=== PATIENT | female | born 1975 | race Caucasian/White ===

== ENCOUNTER → 2020-03-12 14:59 | Outpatient (CLI) | payer OTHER, SELFPAY ==
--- NOTE | 2020-03-12 | DI.US.S_ITS ---
LIMITED ULTRASOUND OF LEFT BREAST: 03/12/2020 CLINICAL: Palpable left breast lump. Comparison is made to exams dated: 03/12/2020 mammogram - [facility], 09/26/2019 mammogram, 09/02/2018 mammogram, 09/02/2018 ultrasound, 09/02/2017 mammogram - [facility], and 08/21/2016 mammogram - [facility]. Color flow and real-time ultrasound of the left breast axilla were performed. Wells scale images of the real-time examination were reviewed. No significant abnormalities were seen sonographically in the left breast. IMPRESSION: NEGATIVE There is no sonographic evidence of malignancy. There is no abnormality seen in the left breast to correspond with the area of clinical concern and palpable abnormality indicated by triangular marker in the middle-posterior depth in the outer aspect, however, recommend clinical follow up for persistent or worsening symptoms, or development of any clinically suspicious findings. Return to annual mammogram screening schedule is recommended. Findings and recommendations were conveyed to the patient during today's evaluation. This exam was interpreted at Station ID: [id number]. Electronically Signed By: Johann Mendoza M.D. aty/:03/12/2020 16:24:56 letter sent: Clinical Evaluation Ultrasound BI-RADS: 1 Negative
--- NOTE | 2020-03-12 | DI.MG.S_ITS ---
UNILATERAL LEFT DIGITAL DIAGNOSTIC MAMMOGRAM 3D/2D: 03/12/2020 CLINICAL: Left breast mass. Comparison is made to exams dated: 09/26/2019 mammogram, 09/02/2018 mammogram, 09/02/2017 mammogram - [facility], 08/21/2016 mammogram, and 08/17/2015 mammogram - [facility]. The tissue of left breast is heterogeneously dense. This may lower the sensitivity of mammography. No significant masses, calcifications, or other findings are seen in the breast. IMPRESSION: INCOMPLETE: NEEDS ADDITIONAL IMAGING EVALUATION There is no abnormality seen in the left breast to correspond with the area of clinical concern and palpable abnormality indicated by triangular marker in the middle-posterior depth of the outer aspect of the left breast, however, ultrasound is recommended and will immediately follow this exam. This exam was interpreted at Station ID: [id number]. NOTE: For mammograms, a report in lay terms will be sent to the patient. Approximately 15% of breast malignancies will not be visualized mammographically. In the management of a palpable breast mass, a negative mammogram must not discourage biopsy of a clinically suspicious lesion. Electronically Signed By: Johann Mendoza M.D. aty/:03/12/2020 16:25:59 ACR BI-RADS Category 0: Incomplete 3340F
== END ==
PROVIDERS: PCP Family Medicine; Referring Provider Family Medicine; Visit Provider Family Medicine
DX: N63.0 Unspecified lump in unspecified breast (principal)
CPT/HCPCS: 76642; 77065; G0279

== ENCOUNTER → 2021-08-20 12:22 | Outpatient (CLI) | payer OTHER, SELFPAY ==
--- NOTE | 2021-08-20 12:26 | DI.MG.S_ITS ---
BILATERAL DIGITAL SCREENING MAMMOGRAM 3D/2D WITH CAD: 08/20/2021 CLINICAL: Family history of breast cancer. Routine screening. Comparison is made to exams dated: 09/26/2019 mammogram, 09/02/2018 mammogram, and 09/02/2017 mammogram - [facility]. The tissue of both breasts is heterogeneously dense. This may lower the sensitivity of mammography. Current study was also evaluated with a Computer Aided Detection (CAD) system. No significant masses, calcifications, or other findings are seen in either breast. There has been no significant interval change. IMPRESSION: NEGATIVE There is no mammographic evidence of malignancy. A 1 year screening mammogram is recommended. This exam was interpreted at Station ID: [id number]. NOTE: For mammograms, a report in lay terms will be sent to the patient. Approximately 15% of breast malignancies will not be visualized mammographically. In the management of a palpable breast mass, a negative mammogram must not discourage biopsy of a clinically suspicious lesion. Electronically Signed By: Fab long/halle:08/20/2021 13:17:24 letter sent: Normal Exam ACR BI-RADS Category 1: Negative 3341F
== END ==
PROVIDERS: PCP Family Medicine; Referring Provider Family Medicine; Visit Provider Family Medicine
DX: Z12.31 Encounter for screening mammogram for malignant neoplasm of breast (principal); Z80.3 Family history of malignant neoplasm of breast
CPT/HCPCS: 77063; 77067; 87077; 87086; 87186

== ENCOUNTER 2022-07-14 21:35 | Emergency (ER) | payer OTHER, SELFPAY ==
--- NOTE | 2022-07-14 22:11 | ED_ITS ---
HPI - General Adult General Chief complaint: Wound/Laceration Stated complaint: lt. hand ring finger laceration Time Seen by Provider: 07/14/22 22:11 Source: patient Mode of arrival: Ambulatory History of Present Illness HPI narrative: Patient is a 47-year-old female who is here for evaluation of a cut to the ring finger on her left hand. She stated that she cut it with a knife at home. It was bleeding. She covered with a bandage and came to the emergency department. Related Data Allergies Allergy/AdvReac Type Severity Reaction Status Date / Time INGREDIENT: NDA - NO KNOWN Allergy Unknown Uncoded 07/29/17 12:00 DRUG ALLERGIES Review of Systems Musculoskeletal Musculoskeletal: Reports system reviewed and no additional complaints, except as documented Integumentary/Breasts Skin/Breast: Reports system reviewed and no additional complaints, except as documented Patient History Social History Smoking Status: Never smoker Exam Initial Vital Signs Initial Vital Signs: Vital Signs Temperature 98 F 07/14/22 22:12 Pulse Rate 68 07/14/22 22:12 Respiratory Rate 16 07/14/22 22:12 Pulse Oximetry 100 07/14/22 22:12 Oxygen Delivery Method Room Air 07/14/22 22:12 Skin Other: Very superficial laceration to the tip of the ring finger. No active bleeding. Neuro Sensory Exam: no sensory deficits noted Procedures Laceration Repair Laceration 1: Site: hand Side (If applicable): left Size (cm): 1 Description: linear Depth: simple, single layer Skin layer closed with: dermabond Course Vital Signs Vital signs: Vital Signs - 8 hr 07/14/22 22:12 Temperature 98 F Pulse Rate 68 Respiratory Rate 16 Pulse Oximetry 100 Oxygen Delivery Method Room Air Medical Decision Making [facility] Narrative Medical decision making narrative: Very superficial cut to the finger. It was closed with Dermabond. No other injuries from the event. No indication for antibiotics. Patient discharged home with care instructions. Discharge Plan Departure Patient Disposition: Home Clinical Impression: Finger laceration Instructions: DI for Laceration Repair-Skin Glue Activity Restrictions/Additional Instructions: You can wash your hands like normal. The skin glue should come off in approximately 7 days. Return to the emergency department for any new symptoms. Referrals: Esther Ramirez MD [Primary Care Provider] - Stand Alone Forms: Patient Portal/API
[2022-07-14 22:12] VITALS: PULSE 68; RESP 16; TEMP 36.6; O2SAT 100
== END 2022-07-14 22:18 | disposition home or self-care (01) ==
PROVIDERS: Emergency Provider Emergency Medicine; PCP Family Medicine
DX: S61.215A Laceration without foreign body of left ring finger without damage to nail, initial encounter (principal); W26.0XXA Contact with knife, initial encounter
CPT/HCPCS: 99281

== ENCOUNTER → 2022-09-17 16:14 | Outpatient (CLI) | payer OTHER, SELFPAY ==
--- NOTE | 2022-09-17 | DI.MG.S_ITS ---
BILATERAL DIGITAL SCREENING MAMMOGRAM 3D/2D WITH CAD: 09/17/2022 CLINICAL: Routine screening. Family history of breast cancer. Comparison is made to exams dated: 08/20/2021 mammogram - [facility], 09/26/2019 mammogram, 09/02/2018 mammogram, and 09/02/2017 mammogram - [facility]. Both breasts are heterogeneously dense, which may obscure small masses (category c / 51-75% glandular tissue). Current study was also evaluated with a Computer Aided Detection (CAD) system. No significant masses, calcifications, or other findings are seen in either breast. There has been no significant interval change. IMPRESSION: NEGATIVE There is no mammographic evidence of malignancy. A 1 year screening mammogram is recommended. Based on Tyrer-Cuzick model (a risk assessment model), the patient's lifetime risk is 25.2% and her 10 year risk is 6.0%. If a patient has an elevated risk, a more comprehensive evaluation should be considered and/or a referral to a genetic counselor. The [employer], [employer], and NCCN Guidelines advise the consideration of Breast MRI as an adjunct to screening mammography in patients whose Lifetime risk to develop breast cancer is 20% or higher. This exam was interpreted at Station ID: [id number]. NOTE: For mammograms, a report in lay terms will be sent to the patient. Approximately 15% of breast malignancies will not be visualized mammographically. In the management of a palpable breast mass, a negative mammogram must not discourage biopsy of a clinically suspicious lesion. Electronically Signed By: Emerson jiménez/halle:09/18/2022 08:43:00 letter sent: Normal Exam ACR BI-RADS Category 1: Negative 3341F
== END ==
PROVIDERS: PCP Family Medicine; Referring Provider Family Medicine; Visit Provider Family Medicine
DX: Z12.31 Encounter for screening mammogram for malignant neoplasm of breast (principal)
CPT/HCPCS: 77063; 77067

== ENCOUNTER 2022-10-29 22:57 | Emergency (ER) | payer OTHER, SELFPAY ==
[2022-10-29 23:08] VITALS: BP 107/63; PULSE 65; RESP 15; TEMP 36.6; O2SAT 99; BMI 24.7
--- NOTE | 2022-10-30 01:58 | ED_ITS ---
HPI - Eye Problem General Chief complaint: Dizziness Stated complaint: left eye socket pain, pressure Time Seen by Provider: 10/30/22 01:45 Source: patient and family Mode of arrival: Wheelchair History of Present Illness HPI Narrative: Patient here with for complaints of left periorbital pain and discomfort. It starts at the lateral canthus area. Denies any direct eye pain. Discomfort is only periorbital. No headache with this. No vision changes. No blurry vision. Patient wears corrective glasses and contact lenses. But denies wearing contact lenses tonight. At 8:00 p.m. she was at her daughter's sporting event, when she got to her car afterwards she felt this discomfort in it would not go away. No syncope. No rash. No fever chills. No pain with eye movement. Related Data Allergies Allergy/AdvReac Type Severity Reaction Status Date / Time No Known Drug Allergies Allergy Verified 10/29/22 23:08 Review of Systems Review of Systems Narrative: GENERAL: negative chills, fatigue, malaise, fever, sweats. HEENT: negative sinus pain, ear pain, sore throat, positive periorbital pain RESPIRATORY: negative dyspnea, cough CARDIOVASCULAR: negative chest pain, palpitations GASTROINTESTINAL: negative nausea, vomiting, abdominal pain : negative dysuria, frequency, hematuria MUSCULOSKELETAL: negative muscle or bony pain SKIN: negative rash, skin lesions NEUROLOGIC: negative weakness, numbness ROS Unobtainable: All systems reviewed & are unremarkable except as noted in HPI and below Patient History Social History Smoking Status: Never smoker Smoking Status: Never smoker alcohol intake frequency: 0-2 drinks per day Substance Use Type: does not use Exam Narrative Exam Narrative: GENERAL: in no distress, not toxic not dyspneic HEAD: Normocephalic. EYES: Pupils equal round PERRLA/EOMI, no pain with eye movement. There is mild tenderness at the lateral canthus. Upper and lower eyelids of the left eye everted. No foreign body. No rash no vesicles. Fundus scope used, no papilledema no photophobia. Patient denies denies any vision changes. No blurry vision or double vision. Patient states vision has been unchanged. Periorbital skin is grossly symmetric with the right. No obvious swelling edema. No erythema or induration ENT: Mucous membranes moist. NEURO: AOx4. SKIN: Warm and dry PSYCH: Not anxious, is cooperative Initial Vital Signs Initial Vital Signs: Vital Signs Temperature 97.8 F 10/29/22 23:08 Pulse Rate 65 10/29/22 23:08 Respiratory Rate 15 10/29/22 23:08 Blood Pressure 107/63 10/29/22 23:08 Pulse Oximetry 99 10/29/22 23:08 Oxygen Delivery Method Room Air 10/29/22 23:08 Course Orders Ordered: ED Orders 10/30/22 02:10 CBC Auto Diff [Complete Blood Count AUTO DIFF] Stat CMP [Comprehensive Metabolic Panel] Stat CRP [C-Reactive Protein Quant] Stat ESR [Erythrocyte Sedimentation Rate] Stat Discontinued Medications Sodium Chloride (Normal Saline 0.9%) 1,000 mls @ 1,000 mls/hr IV BOLUS ONE Stop: 10/30/22 02:55 Last Infusion: 10/30/22 03:00 Dose: 0 mls/hr Documented By: Admin: 10/30/22 02:16 Dose: 1,000 mls/hr Documented By: YONI Ketorolac Tromethamine (Ketorolac 30 Mg/Ml Vial) 15 mg IV NOW ONE Stop: 10/30/22 01:57 Last Admin: 10/30/22 02:16 Dose: 15 mg Documented By: YONI Vital Signs Vital signs: Vital Signs - 8 hr 10/29/22 23:08 10/30/22 03:00 Temperature 97.8 F Pulse Rate 65 62 Respiratory Rate 15 16 Blood Pressure 107/63 106/60 Pulse Oximetry 99 100 Oxygen Delivery Method Room Air Room Air MDM - Eye Problem Lab Data 10/30/22 02:10 10/30/22 02:10 Labs: Lab Results 10/30/22 10/30/22 Range/Units 02:10 02:10 WBC 5.7 (4.5-11.0) X10^3/uL RBC 3.82 L (4.0-5.2) X10^6/uL Hgb 12.0 (12.0-16.0) g/dL Hct 34.7 L (36-46) % MCV 90.9 (80-100) fL MCH 31.3 (26-34) PG MCHC 34.5 (30-36) % RDW 14.5 (11.6-14.8) % Plt Count 271 (150-400) X10^3/uL Neut % (Auto) 59.2 (50-75) % Lymph % (Auto) 29.4 (25-40) % [place] % (Auto) 8.1 (3-14) % Eos % (Auto) 2.3 (2-4) % Baso % (Auto) 1.0 (0-2) % Neut # (Auto) 3400 (5520-5953) /uL Lymph # (Auto) 1700 (5445-5863) /uL [place] # (Auto) 500 (0-900) /uL Eos # (Auto) 100 (0-450) /uL Baso # (Auto) 100 (0-100) /uL ESR 9 (0-20) MM/HR Sodium 137 (137-145) mmol/L Potassium 4.1 (3.4-5.1) mmol/L Chloride 104 (98-107) mmol/L Carbon Dioxide 26 (22-32) mmol/L BUN 16 (7-17) mg/dL Creatinine 0.68 (0.52-1.04) mg/dL Estimated GFR > 60 (>60) mL/min BUN/Creatinine Ratio 23.5 H (6-22) Glucose 103 H (70-100) mg/dL Calcium 9.1 (8.4-10.2) mg/dL Total Bilirubin 0.2 (0.2-1.3) mg/dL AST 21 (14-36) IU/L ALT 18 (<35) IU/L Alkaline Phosphatase 63 (38-126) U/L C-Reactive Protein < 0.5 (<1.0) mg/dL Total Protein 7.1 (6.3-8.2) g/dL Albumin 4.1 (3.5-5.0) g/dL Globulin 3.0 (1.7-4.1) g/dL Albumin/Globulin Ratio 1.4 (1.0-2.8) MDM Narrative Medical decision making narrative: Patient here with for complaints of left periorbital pain and dis comfort. It starts at the lateral canthus area. Denies any direct eye pain. Discomfort is only periorbital. No headache with this. No vision changes. No blurry vision. Patient wears corrective glasses and contact lenses. But denies wearing contact lenses tonight. At 8:00 p.m. she was at her daughter's sporting event, when she got to her car afterwards she felt this discomfort in it would not go away. No syncope. No rash. No fever chills. No pain with eye movement. After history and exam CBC CMP ESR CRP Toradol normal saline MDM CC: Left periorbital pain Complicating co-morbidities: None Data collected from: Patient and Medical records reviewed: No recent visits for this complaint Differential considered: Includes but not limited to temporal arteritis/giant cell arteritis/early shingles/dry eye/periorbital cellulitis Exam documented above, pertinent findings include: No erythema edema left periorbital Lab Test results independently reviewed as above. Pertinent findings: WBC 5.7 GFR greater than 60 glucose 103 CRP less than 0.5 ESR 9 Consultations: None indicated Treatments: Toradol normal saline Re-evaluations: 2:56 a.m.. Patient feeling much better after Toradol. She would not tried any medications prior to arrival. Reviewed results with patient and . They are reassuring at this time. Patient onset 9 hours ago and reviewed with them it may take time for some things to reveal itself. She is less than 12 hours into onset. At this time not likely to be intracranial source. No CT imaging indicated at this time. They agree with treatment plan and discharge home. Return precautions reviewed with them. Reviewed with them differential diagnosis giant cell arteritis and shingles. Discussion: Appropriate for discharge home. Symptoms resolved with conservative treatment with Toradol. Likely not intracranial or retro-orbital source of her pain. As has discomfort periorbital on palpation, dizziness may have been a vagal response to her touching around her eye. Exam and laboratory studies are reassuring. Again, differential diagnosis includes but not limited to giant cell arteritis and shingles. As well as periorbital cellulitis I do not see any wound yanez on the skin the cause the symptoms. Return precautions is reviewed with them. They desire discharge home Diagnosis: Periorbital pain Discharge Plan Departure Patient Disposition: Home Clinical Impression: Pain in periorbital region of left eye Instructions: DI for Eye Pain Activity Restrictions/Additional Instructions: Please see family doctor within a week for re-evaluation of your eye discomfort. Do not wear your contact lenses at this time. May resume after re-evaluation with your family doctor. At this time laboratory studies are reassuring. No imaging/radiographs are indicated. May take [id number] ibuprofen for discomfort as essentially the same medication was given tonight, Toradol. Return if worse if any questions or concerns or for any rash or if any vision changes or any headache. Referrals: Esther Ramirez MD [Primary Care Provider] - Stand Alone Forms: Patient Portal/API
[2022-10-30] MEDS: KETOROLAC 30 MG/ML VIAL 15 MG IV (02:16)
[2022-10-30] MEDS: SODIUM CHLORIDE 0.9% 1,000 ML 1000 ML IV (02:16)
[2022-10-30 02:18] LABS: Add Manual Diff / Slide Review NO; Basophils Absolute Auto 100 /uL (0-100); Eosinophils Absolute Auto 100 /uL (0-450); Eosinophils Percent Auto 2.3 % (2-4); Hematocrit 34.7 % (36-46); Lymphocytes Absolute Auto 1700 /uL (1100-4500); Lymphocytes Percent Auto 29.4 % (25-40); Mean Corpuscular HGB Conc 34.5 % (30-36); Mean Corpuscular Hemoglobin 31.3 PG (26-34); Mean Corpuscular Volume 90.9 fL (80-100); Monocytes Absolute Auto 500 /uL (0-900); Monocytes Percent Auto 8.1 % (3-14); Neutrophils Absolute Auto 3400 /uL (1500-7000); Neutrophils Percent Auto 59.2 % (50-75); Platelet Count 271 X10^3/uL (150-400); Red Blood Cell Count 3.82 X10^6/uL (4.0-5.2); Red Cell Distribution Width 14.5 % (11.6-14.8); White Blood Cell Count 5.7 X10^3/uL (4.5-11.0)
[2022-10-30 02:32] LABS: Alanine Aminotransferase 18 IU/L (<35); Albumin 4.1 g/dL (3.5-5.0); Albumin Globulin Ratio 1.4 (1.0-2.8); Alkaline Phosphatase 63 U/L (38-126); Aspartate Aminotransferase 21 IU/L (14-36); BUN Creatinine Ratio 23.5 (6-22); Bilirubin Total 0.2 mg/dL (0.2-1.3); Blood Urea Nitrogen 16 mg/dL (7-17); C-Reactive Protein Quant < 0.5 mg/dL (<1.0); Calcium 9.1 mg/dL (8.4-10.2); Carbon Dioxide 26 mmol/L (22-32); Chloride 104 mmol/L (98-107); Estimated Glomerular Filt Rate > 60 mL/min (>60); Glucose 103 mg/dL (70-100); HEMOLYSIS < 15 (0-50); Potassium 4.1 mmol/L (3.4-5.1); Sodium 137 mmol/L (137-145); Total Protein 7.1 g/dL (6.3-8.2)
[2022-10-30 02:37] LABS: Erythrocyte Sedimentation Rate 9 MM/HR (0-20)
[2022-10-30 03:00] VITALS: BP 106/60; PULSE 62; RESP 16; O2SAT 100
== END 2022-10-30 03:01 | disposition home or self-care (01) ==
PROVIDERS: Emergency Provider Emergency Medicine; PCP Family Medicine
DX: H57.12 Ocular pain, left eye (principal)
CPT/HCPCS: 36415; 80053; 85025; 85651; 86140; 96374; 99284; J1885

== ENCOUNTER → 2024-07-27 13:08 | Outpatient (CLI) | payer OTHER, SELFPAY ==
--- NOTE | 2024-07-27 13:10 | DI.MG.S_ITS ---
MM screening mammo BI: 07/27/2024. BI-RADS: 2 CLINICAL: 49-year old female for bilateral screening mammogram. Tyrer-Cuzick lifetime risk of 19.8%. Current reported family history of breast cancer: mother. PRIOR EXAMS 09/17/2022, 08/20/2021, 03/12/2020, 08/21/2016, 08/17/2015. MAMMOGRAPHY TECHNIQUE: 2D and 3D (tomosynthesis) digital mammographic views obtained, with additional images as needed for full coverage. Current study was also evaluated with a Computer Aided Detection (CAD) system. DENSITY C. The breasts are heterogeneously dense, which may obscure small masses. MAMMOGRAPHY FINDINGS Right: No suspicious mass, asymmetry, microcalcification, or other abnormality seen. Left: Benign-appearing intramammary lymph node noted on the left. There are no suspicious masses, calcifications, or other findings in the breast. IMPRESSION: Right * No evidence of malignancy. Left * No evidence of malignancy with benign findings. RECOMMENDATIONS Bilateral * Annual screening mammography. OVERALL ASSESSMENT CATEGORY BI-RADS-2: Benign. The [employer] recommends annual screening mammography beginning at age 40 for women with average risk of breast cancer. ELECTRONICALLY SIGNED: Renate Nelson M.D. on 07/27/2024 at 06:01:55 PM PT Interpreting Station ID: [id number]
== END ==
LOC: MAMMO 13:08
PROVIDERS: PCP Family Medicine; Referring Provider Family Medicine; Visit Provider Family Medicine
DX: Z12.31 Encounter for screening mammogram for malignant neoplasm of breast (principal); Z80.3 Family history of malignant neoplasm of breast; R92.333 Mammographic heterogeneous density, bilateral breasts
CPT/HCPCS: 77063; 77067